=== PATIENT | female | born 1965 | race Caucasian/White ===

== ENCOUNTER 2021-05-12 03:25 | Inpatient (IN) ==
[~2021-05-12 03:25] MED LIST: LIDOCAINE 1% 20 ML VIAL ONE; MIDAZOLAM 2 MG/2 ML VIAL ONE; fentaNYL 100 MCG/2 ML VIAL ONE
[2021-05-12] MEDS ORDERED: TIROFIBAN 5,000 MCG/100 ML PREMIX IV ONE (03:46)
[2021-05-12] MEDS ORDERED: TIROFIBAN 5,000 MCG/100 ML PREMIX IV SCH (03:53)
[2021-05-12] MEDS ORDERED: DOBUTamine 500 MG/250 ML PREMIX IV ONE (04:09)
[2021-05-12] MEDS ORDERED: ONDANSETRON 4 MG/2 ML VIAL IV PRN (05:04)
[2021-05-12] MEDS ORDERED: MAGNESIUM SULF RIDER 2 GM/50 ML PREMIX IV PRN (05:04)
[2021-05-12] MEDS ORDERED: MAGNESIUM SULF RIDER 4 GM/100 ML PREMIX IV PRN (05:04)
[2021-05-12] MEDS ORDERED: DOBUTamine 500 MG/250 ML PREMIX IV PRN (05:15)
[2021-05-12] MEDS: SODIUM CHLORIDE 0.9% 1,000 ML IV SCH ×2 (05:56→19:16)
[2021-05-12 06:28] LABS: CKMB % 11.4 %
[2021-05-12 06:32] LABS: High Sensitive Troponin I* 3120.2 ng/L (0-54)
[2021-05-12 06:49] LABS: Risk Ratio 5.07; Thyroid Stimulating Hormone 1.51 uIU/ml (0.358-3.74); VLDL Cholesterol 41.2 MG/DL
[2021-05-12] MEDS: GABAPENTIN 400 MG CAPSULE PO SCH ×3 (08:38→20:50)
[2021-05-12] MEDS: PANTOPRAZOLE 40 MG TABLET PO SCH (08:38)
[2021-05-12] MEDS: carvediloL 3.125 MG TABLET PO SCH ×2 (08:39→20:50)
[2021-05-12] MEDS: ASPIRIN CHEW 81 MG TABLET PO SCH (08:39)
[2021-05-12] MEDS: METHOCARBAMOL 750 MG TABLET PO SCH ×3 (08:39→20:50)
[2021-05-12] MEDS: TICAGRELOR 90 MG TABLET PO SCH ×2 (08:39→20:50)
[2021-05-12] MEDS: buPROPion 75 MG TABLET PO SCH ×2 (08:40→20:50)
[2021-05-12] MEDS: oxyCODONE/ACETAMINOPHEN 5-325 MG TABLET PO PRN ×2 (08:50→18:49)
[2021-05-12] MEDS ORDERED: PARoxetine 10 MG TABLET PO SCH (09:00)
[2021-05-12 09:26] LABS: CKMB % 12.2 %
[2021-05-12 09:29] LABS: High Sensitive Troponin I* 8475.9 ng/L (0-54)
[2021-05-12 13:32] LABS: CKMB % 11.8 %
[2021-05-12 13:37] LABS: High Sensitive Troponin I* 18200.2 ng/L (0-54)
[2021-05-12 20:38] LABS: CKMB % 10.2 %; High Sensitive Troponin I* 12662.7 ng/L (0-54)
[2021-05-12] MEDS: traZODone 50 MG TABLET PO SCH (20:50)
[2021-05-12] MEDS: ROSUVASTATIN 20 MG TABLET PO SCH (20:50)
[2021-05-13] MEDS: oxyCODONE/ACETAMINOPHEN 5-325 MG TABLET PO PRN ×3 (04:34→21:01)
[2021-05-13 05:44] LABS: Basophils % 0.3 % (0.0-0.8); Eosinophils # 0.1 10*3/uL (0.0-0.87); Eosinophils % 1.5 % (0.00-10.9); Hematocrit 36.8 VOL% (35.7-47.0); Hemoglobin 11.4 GM/DL (12.0-16.0); Immature Granulocytes % 0.6 %; Immature Granulocytes Absolute 0.06 #; Lymphocytes # 2.8 10*3/uL (1.4-4.0); Lymphocytes % 29.5 % (21.3-54.2); Mean Corpuscular Volume 90.6 FL (87-102); Mean Platelet Volume 11.8 FL (9.6-12.0); Monocytes % 5.5 % (1.7-12.7); Neutrophils % 62.6 % (38.7-73.9); Platelet Count 197 T/CUMM (130-400); Red Blood Count 4.06 MC/CUMM (3.8-5.5); White Blood Count 9.6 T/CUMM (4-12)
[2021-05-13 06:15] LABS: Albumin 2.9 G/DL (3.4-5.0); Bilirubin,Total 0.9 MG/DL (0.20-1.00); Calcium 8.3 MG/DL (8.5-10.1); Osmolality,Calculated 275.4 MOS/KG (273-304); Potassium 3.8 MMOL/L (3.5-5.1); Total Protein 5.6 G/DL (6.4-8.2)
[2021-05-13] MEDS: ASPIRIN CHEW 81 MG TABLET PO SCH (08:30)
[2021-05-13] MEDS: PANTOPRAZOLE 40 MG TABLET PO SCH (08:30)
[2021-05-13] MEDS: TICAGRELOR 90 MG TABLET PO SCH (08:30)
[2021-05-13] MEDS: buPROPion 75 MG TABLET PO SCH ×2 (08:30→21:00)
[2021-05-13] MEDS: GABAPENTIN 400 MG CAPSULE PO SCH ×3 (08:30→20:59)
[2021-05-13] MEDS: METHOCARBAMOL 750 MG TABLET PO SCH ×3 (08:30→20:59)
[2021-05-13] MEDS: carvediloL 3.125 MG TABLET PO SCH ×2 (08:30→21:00)
[2021-05-13] MEDS ORDERED: CLOPIDOGREL 300 MG TABLET PO ONE (14:48)
[2021-05-13] MEDS: clonazePAM 0.5 MG TABLET PO SCH ×2 (15:13→20:59)
[2021-05-13] MEDS: ROSUVASTATIN 20 MG TABLET PO SCH (21:00)
[2021-05-13] MEDS: traZODone 50 MG TABLET PO SCH (21:00)
[2021-05-14 06:42] LABS: Basophils # 0.1 10*3/uL (0.0-0.2); Basophils % 0.6 % (0.0-0.8); Eosinophils # 0.2 10*3/uL (0.0-0.87); Eosinophils % 2.6 % (0.00-10.9); Hematocrit 37.1 VOL% (35.7-47.0); Hemoglobin 11.8 GM/DL (12.0-16.0); Immature Granulocytes % 0.4 %; Immature Granulocytes Absolute 0.03 #; Lymphocytes # 2.4 10*3/uL (1.4-4.0); Lymphocytes % 28.6 % (21.3-54.2); Mean Corpuscular HGB Conc 31.8 GM/DL (32-36); Mean Corpuscular Volume 89.8 FL (87-102); Mean Platelet Volume 12.4 FL (9.6-12.0); Monocytes % 6.1 % (1.7-12.7); Neutrophils % 61.7 % (38.7-73.9); Platelet Count 214 T/CUMM (130-400); Red Blood Count 4.13 MC/CUMM (3.8-5.5); Red Cell Distribution Width 13.5 % (9.3-17.3); White Blood Count 8.5 T/CUMM (4-12)
[2021-05-14 07:08] LABS: Alanine Aminotransferase 17 U/L (13-56); Alkaline Phosphatase 111 U/L (45-117); Aspartate Amino Transferase 23 U/L (0-37); Bilirubin,Total < 0.39 MG/DL (0.20-1.00); Blood Urea Nitrogen 6 MG/DL (7-18); Calcium 8.6 MG/DL (8.5-10.1); Carbon Dioxide 27 MMOL/L (21-32); Estimated Glom Filtration Rate 106 ML/MIN; Glucose 82 MG/DL (74-106); Osmolality,Calculated 277.3 MOS/KG (273-304); Potassium 3.8 MMOL/L (3.5-5.1); Sodium 141 MMOL/L (136-145); Total Protein 6.1 G/DL (6.4-8.2)
[2021-05-14] MEDS ORDERED: CLOPIDOGREL 75 MG TABLET PO SCH (09:00)
[2021-05-14] MEDS: ASPIRIN CHEW 81 MG TABLET PO SCH (09:31)
[2021-05-14] MEDS: clonazePAM 0.5 MG TABLET PO SCH (09:31)
[2021-05-14] MEDS: buPROPion 75 MG TABLET PO SCH (09:31)
[2021-05-14] MEDS: GABAPENTIN 400 MG CAPSULE PO SCH ×2 (09:31→14:47)
[2021-05-14] MEDS: METHOCARBAMOL 750 MG TABLET PO SCH ×2 (09:31→14:47)
[2021-05-14] MEDS: PANTOPRAZOLE 40 MG TABLET PO SCH (09:32)
[2021-05-14] MEDS: carvediloL 3.125 MG TABLET PO SCH (09:32)
[2021-05-14] MEDS: oxyCODONE/ACETAMINOPHEN 5-325 MG TABLET PO PRN (09:37)
[2021-05-14] MEDS: ALBUTEROL 0.63 MG/3 ML NEB RESP TX SCH ×2 (11:26→15:00)
[2021-05-14 12:18] VITALS: BP 144/76
[2021-05-14] MEDS ORDERED: SERTRALINE 25 MG TABLET PO SCH (21:00)
[2021-05-14] MEDS ORDERED: MONTELUKAST 10 MG TABLET PO SCH (21:00)
== END 2021-05-14 16:25 | disposition home or self-care (01) | DRG 247 ==
LOC: N.ICU → OBSVTOIN 03:25 → N.TELES 05-13 16:38
PROVIDERS: ADMIT Internal Medicine Cardiovascular Disease; ATTEND Internal Medicine Cardiovascular Disease
PROC: CLCCHCL (ICD-10-PCS; 2021-05-12 03:45)